=== PATIENT | female | born 1995 | race Caucasian/White ===

== ENCOUNTER → 2018-04-16 | Outpatient (REF) | payer OTHER | LOC: M LAB REF 17:37 | PROVIDERS: ATTEND Physician Assistant | DX: J06.9 Acute upper respiratory infection, unspecified (principal) ==

== ENCOUNTER → 2018-05-30 | Outpatient (REF) | payer OTHER | LOC: M LAB REF 12:42 | PROVIDERS: ATTEND Physician Assistant | DX: J02.9 Acute pharyngitis, unspecified (principal) ==

== ENCOUNTER 2018-07-29 21:08 | Outpatient (CLI) | payer OTHER ==
[~2018-07-29] VITALS: Ht 165.1 cm; Wt 79.9 kg
[2018-07-29 21:29] VITALS: BP 106/58
[2018-07-29] MEDS ORDERED: PRENTAB9 PO (22:01)
[2018-07-29] MEDS ORDERED: ACET-683 PO (22:01)
--- NOTE | 2018-07-29 22:01 | IPNPDOC ---
Text Note Date of Service The patient was seen on 07/29/18. NOTE 22 yo at 24+3 weeks gestation presents to L&D with the complaint of decreased movement. She reports being side swiped by a dog earlier today and she hasn't felt as much movement as usual since then. She denies any vaginal bleeding or leakage of fluid. She also denies any cramping or pain. Vitals - VSS, afebrile, normotensive, non tachycardic General - AAOX3, sitting up in bed, NAD Abdomen - Gravid uterus, no fundal tenderness Extremities - No edema Bedside TAUS (anatomy not assessed) - Viable SIUP. +gross movement. Anterior placenta. FHR tracing - appropriate for gestational age, BL 135, moderate variability, no decels, no ctx. Patient felt significant movement in triage and was reassured. Reassuring status on US and on monitoring. Patient discharged home with return precautions. Dilcia Okeefe DO VS,Diamond, I+O VS, Joelbone, I+O Vital Signs Date Time Temp Pulse Resp B/P (MAP) Pulse Ox O2 Delivery O2 Flow Rate FiO2 07/29/18 21:29 98.2 80 18 106/58 (74) DILCIA OKEEFE DO Jul 29, 2018 22:01
== END 2018-07-29 22:00 | disposition home or self-care (01) ==
LOC: M LDO 21:08
PROVIDERS: ATTEND Obstetrics & Gynecology
DX: O36.8120 Decreased fetal movements, second trimester, not applicable or unspecified (principal); Z3A.24 24 weeks gestation of pregnancy
CPT/HCPCS: 59025; G0378; G0463

== ENCOUNTER 2018-08-17 01:01 | Outpatient (CLI) | payer OTHER ==
[~2018-08-17] VITALS: Ht 165.1 cm; Wt 82.4 kg
[~2018-08-17 01:01] MED LIST: ACET-683 PO; PRENTAB9 PO
[2018-08-17 01:46] VITALS: BP 112/62
== END 2018-08-17 02:40 | disposition home or self-care (01) ==
LOC: M LDO 01:01
PROVIDERS: ATTEND Obstetrics & Gynecology
DX: O26.893 Other specified pregnancy related conditions, third trimester (principal); R11.0 Nausea; R42 Dizziness and giddiness; Z3A.27 27 weeks gestation of pregnancy
CPT/HCPCS: 59025; G0378; G0463

== ENCOUNTER 2018-10-11 16:05 | Outpatient (CLI) | payer OTHER ==
[~2018-10-11] VITALS: Ht 165.1 cm; Wt 85.3 kg
[2018-10-11 16:33] VITALS: BP 112/71
[2018-10-11] MEDS ORDERED: MAGN400T2 PO (16:35)
[2018-10-11 16:46] VITALS: BP_SYST 108; BP_SYST 112; BP_DIAS 59; BP_DIAS 71
[2018-10-11 16:47] VITALS: BP 108/59
[2018-10-11 17:53] VITALS: BP 118/63
[2018-10-11 18:55] VITALS: BP 129/72
[2018-10-11] MEDS ORDERED: ONDANSETRON 4 MG ORAL DISINTEGRATING TAB (Q0162 PER 1MG) SL ONE (20:00)
[2018-10-11 20:01] VITALS: BP 127/80
== END 2018-10-11 20:10 | disposition home or self-care (01) ==
LOC: M LDO 16:05
PROVIDERS: ATTEND Advanced Practice Midwife
DX: O26.893 Other specified pregnancy related conditions, third trimester (principal); R03.0 Elevated blood-pressure reading, without diagnosis of hypertension; R11.0 Nausea; O99.89 Other specified diseases and conditions complicating pregnancy, childbirth and the puerperium; H57.12 Ocular pain, left eye; Z3A.35 35 weeks gestation of pregnancy
CPT/HCPCS: 59025; G0378; G0463; Q0162

== ENCOUNTER 2018-11-12 14:29 | Outpatient (CLI) | payer OTHER, SELFPAY ==
[~2018-11-12] VITALS: Ht 165.1 cm; Wt 88.4 kg
[~2018-11-12 14:29] MED LIST changes: +MAGN400T2 PO
[2018-11-12 14:43] VITALS: BP 137/76
[2018-11-12 15:53] VITALS: BP 131/72
--- NOTE | 2018-11-12 16:34 | IPNPDOC ---
Text Note Date of Service The patient was seen on 11/12/18. NOTE OB Problem List: Hx Depression, not on medications BMI 26 ASCUS, HPV+ Frequent headaches, followed by neurology 22y/o G1 @ 39+4 wks by 8wk US (ROBIN [id number]) presents for L&D for evaluation of potential allergic reaction. Patient reports that she was being given some garden fencing to put in her garden from an on post location around 1330 this afternoon. The fencing was no longer in the ground, but was stacked together for her to pick it up. Patient reports after picking up the fencing and putting it in her car, she began to experience new onset blurriness of her peripheral vision, tingling of her extremities, difficulty breathing/shortness of breath and facial and throat swelling, making it difficult to swallow. She denies any rash or hives. She initially denied abdominal pain, but now notes period like lower cramping as well as abdominal tightening. She is unsure if this is a con traction. She denies LOF, vaginal bleeding and endorses active movement. At time of interview, around 1600, patient reports continued blurriness in the periphery of her vision, no remaining sensation of throat closing, and is drinking fluids without difficulty. She denies current difficulty breathing. She reports that tingling of her hands remained but tingling of her legs and arms has resolved. She further denies URI symptoms, dysuria, urgency or frequency, diarrhea, constipation. Patient states she has had similar face swelling with Tylenol in the past. PMH - Denies PSH - Tonsillectomy Meds - PNV, Mag Oxide, TUMS PRN All - Tylenol, PCN SocHx - Denies tobacco, alcohol or illicit drug use FamHx - Denies PE: VS as noted below. No tachycardia or hypotension noted. Normotensive. Saturating appropriately on room air. HEENT: Normochalic, atraumatic. No evidence of throat or uvula swelling. Resp: No increased work of breathing. Not tachypnic. Lungs CTAB, no crackles, wheezes or rhonchi. CV: RRR, no murmurs, rubs or gallops Abd - gravid, soft, NT/ND Ext -No edema, moving all four spontaneously Neuro - CN 2-12 grossly intact. 4/4 strength in bilateral upper and lower extremities. Intact sensation bilaterally. No focal neurologic defecits. NST: Baseline 120bpm, moderate variability, +accels, no decels TOCO: quiet A/p: 22y/o G1 @ 39+4 wks with potential resolving allergic reaction. Symptoms currently resolving with no evidence of throat swelling or respiratory compromise. Hemodynamically stable with no evidence of hypotension. Reassuring status. -Discussed with patient that she seems currently clinically stable with improving symptoms, therefore no acute indication for treatment of anaphylaxis with Epinephrines and IV fluid hydration at this time, however discussed potential biphasic nature of anaphylaxis. Recommend observation for 12 hours from event for anaphylaxis monitoring. -As patient does not have any itching or rash, will not prescribe Anti- histamines at this time -Regular diet -Activity as desired -VS q2 hours -Patient to inform staff if symptoms worsening or return. -NST reassuring, will order continuous monitoring if symptoms worsen or recur -Given cramping abdominal pain and foul smelling urine per nursing staff, will send for UA/culture -Will reassess patient periodically and reassess for discharge at 0130, 12 hours from event -All questions answered to patient's apparent satisfaction MD Noreen Taylor Nutrition Intern Provider Update 0110 [id number]: Patient has been observed on labor and delivery for the past 11:40. She now reports that her visual changes has resolved, her tingling has resolved and her abdominal pain is improved, though she notes occasional contractions. Her baby is still moving well and she has not had any vaginal bleeding or LOF. Patient feels at her baseline at this time. Denies shortness of breathe, facial or throat swelling or difficulty swallowing. She has had continuous monitoring for several hours, with reassuring status. Of note, during triage course patient did have a single mild range blood pressure. Toxemia labs were unremarkable. P/C Ratio was unable to be calculated due to protein result <5. Given non conclusive results, will plan for patient to complete 24 hour urine protein. Will call patient with instructions of where to drop off her urine sample: Either [facility]. Patient was given strong discharge precautions for return of her symptoms. She was discharged in stable condition. MD Noreen Taylor Nutrition Intern VS,Diamond, I+O VS, Diamond, I+O Vital Signs Date Time Temp Pulse Resp B/P (MAP) Pulse Ox O2 Delivery O2 Flow Rate FiO2 11/12/18 14:43 99.2 82 18 137/76 (96) Blanquita Wright MD Nov 12, 2018 16:34
[2018-11-12 17:20] LABS: AMORPHOUS SEDIMENT SMALL (NEGATIVE); APPEARANCE, URINE CLOUDY (CLEAR); BACTERIA, URINE AUTO 1+ (NEGATIVE); BILIRUBIN, URINE AUTO NEGATIVE (NEGATIVE); BLOOD, URINE BLOOD 2+ (NEGATIVE); COLOR, URINE YELLOW (YELLOW); GLUCOSE, URINE (UA) AUTO NEGATIVE (NEGATIVE); KETONE, URINE AUTO NEGATIVE (NEGATIVE); LEUKOCYTE ESTERASE, URINE AUTO NEGATIVE (NEGATIVE); MUCUS, URINE SMALL (NEGATIVE); NITRITE, URINE AUTO NEGATIVE (NEGATIVE); PROTEIN, URINE AUTO NEGATIVE (NEGATIVE); RBC, URINE AUTO 33 /HPF (0-3); SPECIFIC GRAVITY URINE AUTO 1.015 (1.002-1.035); SQUAMOUS EPITHELIAL CELL UR AU 4 /HPF (0-6); UROBILINOGEN, URINE AUTO 0.2 mg/dL (0.0-2.0); WBC, URINE AUTO 0 /HPF (0-3)
[2018-11-12 17:57] VITALS: BP 141/86
[2018-11-12 19:27] VITALS: BP 131/73
[2018-11-12 19:39] LABS: HEMATOCRIT 36.2 % (36.0-47.0); MEAN CORPUSCULAR HGB CONC 33.1 g/dl (32.0-36.5); MEAN CORPUSCULAR VOLUME 84.6 fl (80.0-96.0); PLATELET COUNT, AUTOMATED 201 10^3/uL (150-450); RED BLOOD COUNT 4.28 10^6/uL (4.00-5.40); WHITE BLOOD COUNT 11.2 10^3/uL (4.0-10.0)
[2018-11-12 19:55] LABS: CREATININE,RANDOM URINE 14.1 MG/DL; TOTAL PROTEIN,RANDOM URINE < 5.0 MG/DL (0.0-12.0)
[2018-11-12 19:56] LABS: ALBUMIN 2.7 GM/DL (3.2-5.2); ALT/SGPT 15 U/L (12-78); BILIRUBIN,TOTAL 0.2 MG/DL (0.2-1.0); BLOOD UREA NITROGEN 7 MG/DL (7-18); CALCIUM LEVEL 8.8 MG/DL (8.5-10.1); CARBON DIOXIDE LEVEL 21 MEQ/L (21-32); CHLORIDE LEVEL 107 MEQ/L (98-107); CREATININE FOR GFR 0.78 MG/DL (0.55-1.30); GLOMERULAR FILTRATION RATE > 60.0 (>60); GLUCOSE, FASTING 107 MG/DL (70-100); POTASSIUM SERUM 3.7 MEQ/L (3.5-5.1); SODIUM LEVEL 140 MEQ/L (136-145); TOTAL PROTEIN 6.6 GM/DL (6.4-8.2)
[2018-11-12 23:58] VITALS: BP 120/59
== END 2018-11-13 01:15 | disposition home or self-care (01) ==
LOC: M LDO 14:29
PROVIDERS: ATTEND Obstetrics & Gynecology
DX: O99.89 Other specified diseases and conditions complicating pregnancy, childbirth and the puerperium (principal); Z3A.39 39 weeks gestation of pregnancy; T78.40XA Allergy, unspecified, initial encounter; Z88.8 Allergy status to other drugs, medicaments and biological substances; Z88.0 Allergy status to penicillin
CPT/HCPCS: 36415; 59025; 80053; 81001; 82570; 84156; 85027; 87086; G0378; G0463

== ENCOUNTER 2018-11-15 05:17 | Outpatient (CLI) | payer OTHER ==
[~2018-11-15] VITALS: Ht 165.1 cm; Wt 89.7 kg
[2018-11-15 05:37] VITALS: BP 127/77
--- NOTE | 2018-11-15 06:14 | IPNPDOC ---
Text Note Date of Service The patient was seen on 11/15/18. NOTE patient is a 23 yo G1 @ 40wks gestation presents with concern for regular contractions. denies ADDY/VB. +fm. Vitals: normal NAD abd: gravid, soft, nt, cephalic by megan ce: 2cm (per nursing check) fht: 120/mod kimberlyn/pos accel/no decel toco: ctx q 4mins a/p patient not in active labor. discussed return precautions. discharge home. return as needed. DO XAVI Lund LUAT N. DO Nov 15, 2018 06:14
[2018-11-16] MEDS ORDERED: BENA25CA4 PO (19:00)
== END 2018-11-15 06:13 | disposition home or self-care (01) ==
LOC: M LDO 05:17
PROVIDERS: ATTEND Obstetrics & Gynecology
DX: O47.1 False labor at or after 37 completed weeks of gestation (principal); Z3A.40 40 weeks gestation of pregnancy
CPT/HCPCS: 59025; G0378; G0463

== ENCOUNTER 2018-11-15 14:34 | Outpatient (CLI) | payer OTHER ==
[~2018-11-15] VITALS: Ht 165.1 cm; Wt 92.6 kg
[2018-11-15 16:16] VITALS: BP 128/80
[2018-11-16] MEDS ORDERED: BENA25CA4 PO (19:00)
--- NOTE | 2018-11-19 12:37 | HPE ---
DATE OF ADMISSION: 11/15/2018 This is a 23-year-old 1, para 0, last menstrual period (LMP) 02/05/2018, estimated date of confinement (EDC) 11/15/2018 at 40 weeks today with a history of contractions. No spontaneous rupture of membranes. No vaginal discharge. She was seen at 0600 this morning in the triage unit and found to be 2 cm, posterior, -3 station with similar-type contractions. Her risk factors are she has depression. She is being seen by Behavioral Health. Declined Zoloft. Labs are O positive, HIV negative, hepatitis negative, RPR negative, rubella immune. Pap ASCUS. HPV positive. Urine negative. Gonorrhea and chlamydia are negative. One-hour glucose was 89, and GBS is negative. Blood pressure is 128/80, respirations 18, pulse 73, temperature 97.0. Urine is 1.015, pH 7, and is negative for everything else. On examination, she is distressed when she has a contraction. Symphysis height is 40, vertex. Uterus is soft in between contractions. Pelvic examination is still 2 cm, -3 station, posterior. No vag loss or bleeding. She has basically had no change in her cervix. Has a category 2 strip. The patient planned to stay 1 more hour, walked around, reassessment. No change in her contraction pattern or cervix. She was counseled regarding home, having a bath, Benadryl, and re-evaluation if she needs to come back at any time, but presently she is not in active labor and has not changed her cervix or character of the pain or intensity in the last 12 hours. The patient was discharged undelivered.
== END 2018-11-15 17:18 | disposition home or self-care (01) ==
LOC: M LDO 14:34
PROVIDERS: ATTEND Obstetrics & Gynecology
DX: O26.893 Other specified pregnancy related conditions, third trimester (principal); R87.610 Atypical squamous cells of undetermined significance on cytologic smear of cervix (ASC-US); O98.513 Other viral diseases complicating pregnancy, third trimester; R87.810 Cervical high risk human papillomavirus (HPV) DNA test positive; O99.343 Other mental disorders complicating pregnancy, third trimester; F32.9 Major depressive disorder, single episode, unspecified; Z3A.40 40 weeks gestation of pregnancy
CPT/HCPCS: 59025; G0378; G0463

== ENCOUNTER 2018-11-15 19:49 | Inpatient (IN) | payer OTHER ==
[~2018-11-15] VITALS: Ht 165.1 cm; Wt 92.6 kg
[2018-11-15 20:08] VITALS: BP 136/84
[2018-11-15] MEDS ORDERED: LR 1,000 ML IV SCH (20:26)
[2018-11-15] MEDS ORDERED: LACTATED RINGER'S 1000 ML IV ONE (20:30)
[2018-11-15 20:48] LABS: HEMATOCRIT 36.9 % (36.0-47.0); HEMOGLOBIN 12.2 g/dl (12.0-15.5); MEAN CORPUSCULAR HEMOGLOBIN 27.9 pg (27.0-33.0); MEAN CORPUSCULAR HGB CONC 33.1 g/dl (32.0-36.5); MEAN CORPUSCULAR VOLUME 84.4 fl (80.0-96.0); PLATELET COUNT, AUTOMATED 197 10^3/uL (150-450); RED BLOOD COUNT 4.37 10^6/uL (4.00-5.40)
[2018-11-15 21:27] VITALS: BP 127/70
--- NOTE | 2018-11-15 21:46 | HPE ---
DATE OF ADMISSION: 11/15/2018 This a 23-year-old 1, para 0, LMP 02/05/2018, estimated date of delivery (EDC) 11/15/2018 at 40 weeks of gestation complaining of contractions. No vaginal bleeding or discharge. This is her fourth evaluation in less than 24 hours. Her risk factors are behavioral health issues with depression. Labs are O+, HIV negative, hep negative, RPR negative, rubella immune. Pap was ascus HPV positive, urine was negative. Gonorrhea and chlamydia negative. 1-hour glucose was 89. GBS is negative. Blood pressure is 136/84, respirations are 18, pulse is 93, temperature 97.8. Category one strip. On examination she is still in the stressful mode. Symphysis fundus height is 40, vertex, anterior 2 cm, -3, 75-80% effaced. No vaginal bleeding or discharge. Small change in her cervix being anterior from posterior. The rest examination unremarkable. Normocephalic, atraumatic. Neck: Full range of motion. Pupils equal, reactive to light. Distal pulses symmetric. No evidence of DVT, PE or superficial phlebitis. Chest is clear bilaterally bases. No wheezes or rhonchi. No CVA tenderness. Abdomen: Soft, four quadrant bowel sounds are noted. Appropriate symphysis fundus height. She has no rashes, lesions or pruritus. No arthralgia, myalgia. No complaint joint pain. No complaint of cough, wheeze, shortness of breath or dyspnea on exertion. No nausea, vomiting, diarrhea or constipation. 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 FAMILY HISTORY: None. PAST SURGICAL HISTORY: None. SUMMARY: We have a lady is recurringly coming because of painful contractions and her pain tolerance is very low. She has minimally changed her cervix after four evaluations in 24 hours. Our plan of management is to hydrate her, maintain a close eye on her to see if there is any change in the next 3-4 hours. The patient feels that this is appropriate management. She had just gone home 2 hours prior to coming back so therefore we are going to continue with this plan. Safe to proceed.
[2018-11-15 23:09] VITALS: BP 120/76
[2018-11-15] MEDS ORDERED: BUTORPHANOL 2 MG/ML INJ (J0595) IV ONE (23:45)
[2018-11-15] MEDS ORDERED: PROMETHAZINE INJ 25 MG/ML VIAL (J2550) IV ONE (23:45)
[2018-11-16 02:22] VITALS: BP 112/63
--- NOTE | 2018-11-16 09:35 | IPN ---
DATE: 11/15/2018 This lady is a 2, para 0, who was admitted with contractions and intolerable pain. She is presently exhausted and therefore we are going to give her some Stadol and Phenergan. She has a category one strip. She has had increasing pain with the contractions which are 3 to 8 minutes apart. Her blood pressure presently is 120/76, respirations are 18, pulse 78, and she is afebrile. Our plan is to allow her to rest, possibly get some sleep, and hopefully when she wakes up will be either in active labor or will require augmentation with Pitocin.
--- NOTE | 2018-11-16 15:56 | DSES ---
DATE OF ADMISSION: 11/15/2018 DATE OF DISCHARGE: 11/16/2018 This a 23-year-old 1, para 0, last menstrual period (LMP) 02/05/2018, estimated date of confinement (EDC) 11/15/2018, at 40 weeks. Has had contractions on and off. No vaginal bleeding. No ruptured membranes. This is her fourth evaluation in less than 24 hours. She on the fourth evaluation came in, and we elected to monitor her and keep her for an overnight stay, because she was having pain with her contractions, although she has not changed her cervix in any of the three visits previously. She was given Phenergan and slept most of the night. Category 1 strip. I re-examined her this morning. No change in her cervix. Still posterior, 2 cm, -3 station. No vaginal bleeding or loss. Her blood pressures were normal; last one was 112/63. Respirations are 18, pulse 75 and temperature is 99.4. She did not have any significant contractions overnight. She did not have any pain overnight. She got up once, and then she went back to bed. We discussed the fact that she is booked for induction of labor at 41 weeks and that these [place] contractions will be painful; however, if we persist in an induction of labor at the present time, she has a higher risk of ending up with a section. Despite the fact that she is booked for induction of labor at 41 weeks, if she actively gets into labor or progresses with her cervix, then she will be maintained in labor and delivery. She has an appointment for followup on Sunday for evaluation of her cervix and possibly nonstress test at that time. Both the patient and her accept and agree with the recommendation and the plan of care. She was discharged undelivered to followup in the office on Sunday.
[2018-11-16] MEDS ORDERED: BENA25CA4 PO (19:00)
== END 2018-11-16 06:45 | disposition home or self-care (01) | DRG 833 ==
LOC: M LDO 19:49 → M LDI 20:16
PROVIDERS: ADMIT Obstetrics & Gynecology; ATTEND Obstetrics & Gynecology
DX: O47.1 False labor at or after 37 completed weeks of gestation (principal); Z3A.40 40 weeks gestation of pregnancy; O99.343 Other mental disorders complicating pregnancy, third trimester; F32.9 Major depressive disorder, single episode, unspecified

== ENCOUNTER 2018-11-16 10:50 | Inpatient (IN) | payer OTHER ==
[2018-11-16] VITALS (28 sets, daily range): BP systolic 98–144; BP diastolic 50–83
[~2018-11-16] VITALS: Ht 165.1 cm; Wt 92.6 kg
[2018-11-16] MEDS ORDERED: LACTATED RINGER'S 1000 ML IV STA (11:51)
[2018-11-16] MEDS ORDERED: PROMETHAZINE INJ 25 MG/ML VIAL (J2550) IV ONE (12:00)
--- NOTE | 2018-11-16 12:32 | HPEPDOC ---
Obstetrical History & Physical General Date of Admission 11/16/2018 Primary Care Physician: Blanquita Wright MD History of Present Illness OB Considerations: Hx Depression, previously on Zoloft BMI 26, Excessive wt gain 38.7lbs ASCUS, HPV+ pap, needs repeat cotest 1 year Headaches - on magnesium oxide 22y/o G1 @ 40+1 wks by 8 wk US (ROBIN [id number]) presents for painful contractions, now 4-6 minutes apart. Patient has been seen 4 times in the last 24 hours for the same, and had received Stadol overnight with unchanged cervix. Patient received Nubain 10mg IV/10mg IM and Phenergan 12.5mg IV. After awakening, she made change to 5/80/-1 with leakage of clear fluid at 1708. SSE notable for +pooling and +ferning on microscopy. Chief Complaint: Contractions, term Information Provided By: Patient Age: 22 : 1 Care Care: Good Care Dating Final EDC: Nov 15, 2018 Final EDC for Daily Update: Nov 15, 2018 Final EDC by: 1st trimester (US) LMP: Feb 05, 2018 1st Trimester Date: Apr 11, 2018 Estimated Date of Confinement: Nov 15, 2018 Antepartum Course Diagnos(e)s 40+1 Height (inches): 65 Pre- weight (lbs.): 165 Admission Weight (lbs.): 203.72 Change in Weight (lbs.): 38.7 Past Medical History Past Obstetrical History : Past Obstetrical History: [employer]IVER History: Abnormal Pap, Human papillomavirus(HPV) Past Medical History Medical History Depression Headaches Surgical History: Tonsilectomy Family History Significant Family History: No pertinent family hx Social History Social history Smoker prior to . Denies alcohol or illicit drug use Marital Status: Family situation: Spouse/partner home Psychosocial History: Depression * Smoker: former Smoker Alcohol: Denies Drugs: denies Abuse Violence Screening Have you been hit/kicked/slapp: No Have you been sexually assault: No Imunizations Tdap status: current Influenza Status: needs Allergies Coded Allergies: acetaminophen (Verified Allergy, Mild, face swells, 11/12/18) penicillin G (Verified Allergy, Unknown, unknown reaction, 11/12/18) Medications Scheduled No.137/Iron/Folic Acd ( Vitamin Tablet) 1 Each Tablet, 1 TAB PO DAILY Miscellaneous Medications Magnesium Oxide (Magnesium Oxide) 400 Mg Tablet, 400 MG PO Physical Examination Physical Examination GENERAL: Alert and oriented times three. BREAST: . ABDOMEN: Gravid and non-tender to touch. EFW 3600g FETUS: Is vertex (VTX) by sterile vaginal examination (SVE), fetus is vertex (VTX) by Tommy. HEART RATE: Regular rate and rhythm. LUNGS: Clear to auscultation (CTA). EXTREMITIES: No edema. Vital Signs/I&O BP 101/58 HR 78 RR 18 T 97.8 Laboratory Data 24H LABS CBC 14.3>13.0/38.8<211 Urine Culture: No Growth Pertinent Laboratoy Data Blood Type: O+ RBC Antibody Screen: Negative HIV: Negative Hepatitis B: Negative Hepatitis C: Unknown Rapid Plasma Reagin: Nonreactive Rubella: Immune Varicella: Immune Chlamydia/Gonorrhea: Negative Group B Streptococcus: Negative Glucose Tolerance Test: 89 Anatomy Ultrasound Ultrasound Date: July 02, 2018 Placenta Location: Anterior Normal Anatomy: Yes Placenta Previa: No Estimated Weight (grams): 339 Vaginal Examination Dilation: 5 cm Effacement: 80% Station: -1 Cervical Consistency: Soft Cervical Position: Middle Presentation: Cephalic presentation Position: Vertex (occiput) Assessment Variability: Moderate Accelerations: Positive Decelerations: None Tocometer Contractions: Yes Frequency: regular Duration: greater than 60 seconds Strength: palpated as mild Multi-drug resistant Organism: No history of MDRO Assessment/Plan Assessment 22y/o G1 @ 40+1 wks by 8 wk US (ROBIN [id number]) admitted for SROM/labor. Plan Admit and orient. Certified Prosthetist/Orthotist and consent. Diet: Clear liquids. Group B Streptococcus (GBS) negative. Labs and intravenous (IV) per unit protocol. Counseled on Pitocin and induction of labor (IOL). Lactated Ringers (LR): Bolus 1000 mL, then at 125 mL/hr. Epidural as patient desires. Anticipate normal spontaneous delivery (). C-S as appropriate. Labor and Delivery Counseling Discussed procedures performed on L&D to include external monitoring and tocometry, internal monitoring with FSE and/or IUPC. Discussed medications for pain control to include IV pain medications and epidural. Discussed medication to have contractions to include Pitocin and potential for AROM. Your GBS was negative but if you develop a fever, you may need treated for infection with antibiotics. In certain situations, we can assist your vaginal delivery with forceps or vacuum. At times, an episiotomy will be cut to make more room for baby to deliver. Risks of labor and delivery include infection, bleeding. Some patients have enough bleeding that they need a blood transfusion with subsequent risks of blood borne infection such as Hepatitis or HIV, or transfusion reaction. There is a possibility of tearing to the vagina. Other risks include injury to baby, need for emergency section, or need to do additional procedures following delivery. All questions answered to patient's apparent satisfaction. Blanquita Wright MD Nov 16, 2018 12:32
[2018-11-16 12:38] LABS: HEMATOCRIT 38.8 % (36.0-47.0); MEAN CORPUSCULAR HEMOGLOBIN 28.3 pg (27.0-33.0); MEAN CORPUSCULAR HGB CONC 33.5 g/dl (32.0-36.5); MEAN CORPUSCULAR VOLUME 84.3 fl (80.0-96.0); PLATELET COUNT, AUTOMATED 211 10^3/uL (150-450); WHITE BLOOD COUNT 14.3 10^3/uL (4.0-10.0)
[2018-11-16] MEDS ORDERED: NALBUPHINE HCL 10 MG/ML AMP (J2300) IM ONE (13:00)
[2018-11-16] MEDS ORDERED: NALBUPHINE HCL 10 MG/ML AMP (J2300) IV ONE (13:00)
[2018-11-16] MEDS: LR 1,000 ML IV SCH ×2 (13:14→18:27)
[2018-11-16] MEDS ORDERED: FENTANYL 2MCG/ML ROPIVACAINE 0.2% IN 0.9% NACL 100ML IVBAG As Ordered ONE (18:15)
[2018-11-16] MEDS ORDERED: BENA25CA4 PO (19:00)
[2018-11-16] MEDS ORDERED: EPIDURAL COMMENT XX SCH (20:00)
[2018-11-16] MEDS ORDERED: FENTANYL/ROPIVACAINE/NACL BAG 100 ML EPIDURAL SCH (20:00)
[2018-11-16] MEDS ORDERED: LACTATED RINGER'S 1000 ML IV PRN (20:00)
[2018-11-16] MEDS ORDERED: REFRIGERATOR IV KEYS XX PRN (20:00)
[2018-11-16] MEDS ORDERED: NALOXONE INJ 0.4 MG/1 ML VIAL (J2310) IV PRN (20:00)
[2018-11-16] MEDS ORDERED: diphenhydrAMINE INJ 50MG/ML VIAL (J1200) IV PRN (20:00)
[2018-11-16] MEDS ORDERED: ePHEDrine SULFATE 25 MG/5 ML(5MG/ML) SYRINGE IV PRN (20:00)
[2018-11-16] MEDS ORDERED: ONDANSETRON 4MG/2ML VIAL (J2405) IV PRN (20:00)
[2018-11-16] MEDS ORDERED: EPIDURAL/PCA KEYS XX PRN (20:00)
[2018-11-16] MEDS ORDERED: OXYTOCIN DRIP 30 UNITS in IV 1 EA IV SCH (20:00)
[2018-11-17] VITALS (7 sets, daily range): BP systolic 104–125; BP diastolic 55–73
--- NOTE | 2018-11-17 00:42 | DNPDOC ---
[facility] Delivery Note Delivery Note DATE OF DELIVERY: [id number] [id number] PREDELIVERY DIAGNOSIS: 40+2 weeks' gestation and labor. POST DELIVERY DIAGNOSIS: Delivered. PROCEDURE: Spontaneous vaginal delivery. FUNDRAISING SPECIALIST: Dr. Wright ANESTHESIA: Epidural ESTIMATED BLOOD LOSS: 100 mL. FINDINGS: 6 pound 1 ounce female , Score 9/9, nuchal cord times 0. DELIVERY SUMMARY: Patient is a 23-year-old 1 now para 1001 who was admitted to labor and delivery for labor/SROM. She received epidural anesthesia and was titrated to 4mU of Pitocin. GBS was negative. Over 3 hours of augmentation, patient progressed to C/C/+2. After 30 minute rest period, she delivered over 3 sets of pushes OA, restituted ROT. The left anterior shoulder delivered with downward traction and right posterior shoulder delivered with upward guidance. No nuchal cord noted. The remainder of the body delivered with ease, and was placed to maternal abdomen with spontaneous cry. The cord was clamped x2 and cut by father of the baby. 30u Pitocin in 500cc of LR was started per protocol. The placenta delivered intact, 3vc, central insertion. Bimanual message was notable for fundus firm at U-3. Systematic examination of the perineum was notable for right labial laceration, which was hemostatic and not repaired. The perineum was intact. Sponge count was correct x2. Mother and were stable when providers left the room. EBL 100cc. Blanquita Wright MD Nov 17, 2018 00:42
[2018-11-17] MEDS ORDERED: OXYTOCIN DRIP 30 UNITS in IV 1 EA IV SCH (00:48)
[2018-11-17] MEDS ORDERED: IBUPROFEN 600 MG TAB PO PRN (01:00)
[2018-11-17] MEDS ORDERED: METHYLERGONOVINE MALEATE 0.2 MG TAB PO PRN (01:00)
[2018-11-17] MEDS ORDERED: RHOGAM 300 MCG (1500 IU) INJ (J2790) IM SCH (01:00)
[2018-11-17] MEDS ORDERED: MEASLES,MUMPS,RUBELLA VACCINE INJ (MMR-II) (90707) SC SCH (01:00)
[2018-11-17] MEDS: IBUPROFEN 800 MG TAB PO PRN ×3 (03:13→19:41)
[2018-11-17] MEDS: DIBUCAINE 1% OINTMENT 30GM TOP PRN (06:30)
[2018-11-17] MEDS: DOCUSATE SODIUM 100 MG CAP PO SCH ×2 (09:06→19:41)
[2018-11-17] MEDS: PRENATAL VITAMINS CHEWABLE TABLET PO SCH (09:06)
[2018-11-17] MEDS: ACETAMINOPHEN 325 MG/10.15 ML UDC PO PRN (15:53)
[2018-11-18] MEDS: IBUPROFEN 800 MG TAB PO PRN ×2 (04:34→15:30)
[2018-11-18 06:04] VITALS: BP 120/77
--- NOTE | 2018-11-18 08:12 | IPNPDOC ---
Text Note Date of Service The patient was seen on 11/18/18. NOTE OB Considerations: Hx Depression, previously on Zoloft BMI 26, Excessive wt gain 38.7lbs ASCUS, HPV+ pap, needs repeat co-test 1 year Headaches - on magnesium oxide 22y/o [id number] PPD#1 s/p uncomplicated @ 40+2 wks around 0030 on 17Nov2018. Delivery was uncomplicated with EBL 100cc. No lacerations requiring repair. This morning, patient is doing well and without complaints. She is voiding without difficulty, tolerating regular diet, ambulating without lightheadedness. Lochia is diminishing. Patient is bottle feeding. VS: Reviewed. Normotensive, afebrile, non tachycardic General: Alert and oriented Res: Non labored breathing CV: Well perfused Abd: Soft, appropriately tender. U-2. Ext: No edema, erythema or calf tenderness A/p: 22y/o PPD#1 s/p uncomplicated -Encourage hydration, ambulation -Motrin and Tylenol for pain control -O pos, Rubella immune -Contraception: Considering options -Anticipate discharge on PPD#2 VS,Fishbone, I+O VS, Fishbone, I+O Vital Signs Date Time Temp Pulse Resp B/P (MAP) Pulse Ox O2 Delivery O2 Flow Rate FiO2 11/18/18 06:04 97.5 86 18 120/77 (91) I&O- Last 24 Hours up to 6 AM 11/18/18 05:59 Output Total 1200 ml Balance -1200 ml Blanquita Wright MD Nov 18, 2018 08:12
[2018-11-18] MEDS: DOCUSATE SODIUM 100 MG CAP PO SCH ×2 (09:05→21:49)
[2018-11-18] MEDS: PRENATAL VITAMINS CHEWABLE TABLET PO SCH (09:05)
[2018-11-18 18:00] VITALS: BP 122/62
[2018-11-18] MEDS: ACETAMINOPHEN 325 MG/10.15 ML UDC PO PRN (19:34)
[2018-11-18] MEDS ORDERED: MAGNESIUM OXIDE 400 MG TAB (MAG-OX) PO ONE (22:00)
[2018-11-18 23:05] VITALS: BP 129/64
[2018-11-19] MEDS: ACETAMINOPHEN 325 MG/10.15 ML UDC PO PRN (04:44)
[2018-11-19] MEDS: DIBUCAINE 1% OINTMENT 30GM TOP PRN (06:14)
[2018-11-19 06:30] VITALS: BP 128/78
--- NOTE | 2018-11-19 06:55 | IPNPDOC ---
Progress Note Date of Service: Nov 19, 2018 Day#: 2 Progress Note 22y/o [id number] PPD#2 s/p uncomplicated @ 40+2 wks around 0030 on . This morning, patient is doing well and without complaints. She is voiding without difficulty, tolerating regular diet, ambulating without lightheadedness. Lochia is diminishing. Patient is bottle feeding. VS: Reviewed. Normotensive, afebrile, non tachycardic General: Alert and oriented Res: Non labored breathing CV: Well perfused Abd: Soft, appropriately tender. U-2. Ext: No edema, erythema or calf tenderness A/p: 22y/o PPD#2 s/p uncomplicated , discharge instructions, patient to vegetable picker medications at [facility]. discharge today. DO [place] VS, I&O, 24H, Fishbone Vital Signs/I&O Vital Signs Date Time Temp Pulse Resp B/P (MAP) Pulse Ox O2 Delivery O2 Flow Rate FiO2 11/19/18 06:30 98.6 80 16 128/78 (95) 98 DHIRAJ HURLEY DO Nov 19, 2018 06:55
--- NOTE | 2018-11-19 06:56 | OBDS ---
[facility] Obstetrical Discharge Sum. Obstetrical Discharge Summary Enginehouse Brakeman/Provider: DHIRAJ HURLEY DO Date: Nov 19, 2018 : 1 Term: 1 Pre-term: 0 Abortions: 0 Livin VDRL: Non-Reactive Rh: Positive Rubella: Immune Sex: Female Infant Weight: pounds (6), ounces (1) Anesthesia: Regional Anesthesia A/P, Post Course List any complications Admission diagnosis: labor Discharge diagnosis: spontaneous vaginal delivery Condition at Discharge: stable Discharge Instructions: Home Activity: as tolerated Diet: regular Medications: fill at [facility] Follow-up: 6wks Hospital Course: Patient admitted for labor at 40+2wks gestation. She progressed to have spontaneous vaginal delivery. course uncomplicated and she meets discharge criteria on day #2. DHIRAJ HURLEY DO Nov 19, 2018 03:47
[2018-11-19] MEDS: PRENATAL VITAMINS CHEWABLE TABLET PO SCH (08:56)
[2018-11-19] MEDS: DOCUSATE SODIUM 100 MG CAP PO SCH (08:57)
[2018-11-19] MEDS ORDERED: MAGNESIUM OXIDE 400 MG TAB (MAG-OX) PO SCH ×2 (09:00)
== END 2018-11-19 12:25 | disposition home or self-care (01) | DRG 807 ==
LOC: M LDO 10:50 → M LDI 18:05 → M OBS 11-17 04:22
PROVIDERS: ADMIT Obstetrics & Gynecology; ATTEND Obstetrics & Gynecology
PROC: 10E0XZZ Delivery of Products of Conception, External Approach (ICD-10-PCS; principal; 2018-11-17)
PROC: 0HQ9XZZ Repair Perineum Skin, External Approach (ICD-10-PCS; 2018-11-17)
DX: O48.0 Post-term pregnancy (principal); Z37.0 Single live birth; Z3A.40 40 weeks gestation of pregnancy; Z87.891 Personal history of nicotine dependence; Z88.0 Allergy status to penicillin; Z88.6 Allergy status to analgesic agent; O70.0 First degree perineal laceration during delivery

== ENCOUNTER 2018-12-21 10:40 | Emergency (ER) | payer OTHER ==
[~2018-12-21] VITALS: Ht 165.1 cm; Wt 81.4 kg
[~2018-12-21 10:40] MED LIST changes: +BENA25CA4 PO
[2018-12-21] MEDS ORDERED: COLA100C5 PO (11:00)
[2018-12-21 11:36] LABS: APPEARANCE, URINE HAZY (CLEAR); BACTERIA, URINE AUTO NEGATIVE (NEGATIVE); BILIRUBIN, URINE AUTO NEGATIVE (NEGATIVE); BLOOD, URINE BLOOD NEGATIVE (NEGATIVE); COLOR, URINE YELLOW (YELLOW); GLUCOSE, URINE (UA) AUTO NEGATIVE (NEGATIVE); KETONE, URINE AUTO NEGATIVE (NEGATIVE); LEUKOCYTE ESTERASE, URINE AUTO NEGATIVE (NEGATIVE); NITRITE, URINE AUTO NEGATIVE (NEGATIVE); PROTEIN, URINE AUTO NEGATIVE (NEGATIVE); RBC, URINE AUTO 2 /HPF (0-3); SQUAMOUS EPITHELIAL CELL UR AU 5 /HPF (0-6); UROBILINOGEN, URINE AUTO 0.2 mg/dL (0.0-2.0); WBC, URINE AUTO 1 /HPF (0-3)
[2018-12-21 11:37] LABS: BASO # 0.1 10^3/uL (0.0-0.2); BASO % 0.8 % (0.0-1.0); EOS # 0.1 10^3/uL (0.0-0.5); EOS % 1.8 % (0.0-3.0); HEMATOCRIT 42.3 % (36.0-47.0); HEMOGLOBIN 13.5 g/dl (12.0-15.5); LYMPH % 29.7 % (24.0-44.0); MEAN CORPUSCULAR HEMOGLOBIN 27.2 pg (27.0-33.0); MEAN CORPUSCULAR HGB CONC 31.9 g/dl (32.0-36.5); MEAN CORPUSCULAR VOLUME 85.3 fl (80.0-96.0); MONO # 0.4 10^3/uL (0.0-0.8); MONO % 5.6 % (0.0-5.0); NEUTROPHILS # 4.1 10^3/uL (1.5-8.5); NEUTROPHILS % 61.6 % (36.0-66.0); PLATELET COUNT, AUTOMATED 210 10^3/uL (150-450); RED BLOOD COUNT 4.96 10^6/uL (4.00-5.40); WHITE BLOOD COUNT 6.6 10^3/uL (4.0-10.0)
--- NOTE | 2018-12-21 11:43 | REP ---
Pelvic sonography: History: Left lower quadrant pain. 5 weeks status post vaginal delivery. Findings: Transabdominal scanning is performed. Visualized bladder hancock are smooth. The uterus remains somewhat enlarged with dimensions of 10.5 x 5.5 x 6.2 cm. Endometrial echo is 1.9 cm in greatest thickness. No focal uterine mass is seen. No free fluid is seen. Right ovary measures 3.0 x 2.1 x 2.3 cm. Its Doppler flow is normal. Resistive index is 0.62. No right ovarian lesion is seen. Left ovarian dimensions are 4.0 x 3.2 x 5.1 cm. Its Doppler flow is normal resistive index 0.60. There is a 2.0 cm follicle cyst in the left ovary. Impression: No significant morphologic abnormality. Mild uterine enlargement and endometrial thickening seen. Otherwise negative. 2 cm follicle cyst left ovary. Electronically Signed by Levon Sánchez MD 12/21/2018 05:01 P
[2018-12-21] MEDS ORDERED: KETOROLAC 60 MG/2 ML VIAL (J1885) IM ONE (12:15)
[2018-12-21 12:45] VITALS: BP 121/75
[2018-12-21] MEDS ORDERED: KETO10TAB PO ×2 (12:50→13:00)
== END 2018-12-21 13:17 | disposition home or self-care (01) ==
LOC: M ED 10:40
DX: N83.292 Other ovarian cyst, left side (principal); Z88.0 Allergy status to penicillin; Z88.8 Allergy status to other drugs, medicaments and biological substances
CPT/HCPCS: 36415; 76856; 80047; 81001; 84702; 85025; 93976; 96372; 99283; J1885

== ENCOUNTER → 2019-01-22 | Outpatient (REF) | payer OTHER ==
[~2019-01-22] MED LIST changes: +COLA100C5 PO; +KETO10TAB PO
== END ==
LOC: M SFHCLERA 10:13
PROVIDERS: ATTEND Nurse Practitioner Family
DX: J02.9 Acute pharyngitis, unspecified (principal)